=== PATIENT | male | born 1990 | race Caucasian/White ===

== ENCOUNTER 2017-04-08 17:21 | Emergency (ER) | payer OTHER ==
[~2017-04-08] VITALS: Ht 175.3 cm; Wt 117.0 kg
[2017-04-08] MEDS ORDERED: HYDROCODONE/ACETAMINOPHEN 5/325MG TABLET PO ONE (18:30)
[2017-04-08 18:33] VITALS: BP 171/91
== END 2017-04-08 19:09 | disposition home or self-care (01) ==
LOC: ER 17:21
DX: S63.61 Unspecified sprain of other and unspecified finger(s) (principal); F12.10 Cannabis abuse, uncomplicated; F17.210 Nicotine dependence, cigarettes, uncomplicated; Y08.89XS Assault by other specified means, sequela
CPT/HCPCS: 73120; 99284